=== PATIENT | female | born 1970 | race Caucasian/White ===

== ENCOUNTER 2024-12-15 08:29 | Emergency (ER) | payer OTHER, SELFPAY ==
[2024-12-15 08:32] VITALS: BP 163/108
--- NOTE | 2024-12-15 08:57 | ED.GENMED ---
History of Present Illness
General
Chief Complaint: Blood Pressure Problem
Source: patient
Time Seen by Provider: 12/15/24 08:47
History of Present Illness
History of Present Illness:
54-year-old female with past medical history of migraines presenting to the emergency department for evaluation of elevated blood pressure, patient notes that yesterday at preoperative testing prior to a bunionectomy procedure it was noted that
patient had elevated blood pressure, today went to the school nurse for blood pressure rechecked and it was significantly elevated at 208/108 and was recommended to come to the ER for further evaluation patient states that she is otherwise
asymptomatic, denying any headaches, visual disturbances, focal weakness or numbness, chest pain or shortness of breath, abdominal pain, nausea or vomiting. She notes that her blood pressure is usually well-controlled, has no history of similar.
Father had a history of hypertension but patient notes that he had a significant smoking history. Social history was otherwise noncontributory.
Past History
Past History
ED Past Medical History: Other (Migraines)
ED Past Surgical History: and Orthopedic
Social History
Tobacco: Non-smoker
Alcohol: None
Drug: None
Personal:
Living: with family
Employment: Employed
Review of Systems
Review of Systems
All Other Systems: ROS reviewed and negative except as documented in HPI and ROS
Phy Exam
Physical Exam
Physical Exam:
GENERAL: Alert , in no apparent distress
HEAD: Normocephalic atraumatic
EYE: conjunctiva clear
NECK: Supple
ENT: o/p clr, mmm.
CARDIAC: Regular rate and rhythm
LUNGS: Clear breath sounds bilaterally, no acute respiratory distress, no wheezes/rales/rhonchi
NEUROLOGICAL: Alert and oriented
SKIN: Warm and dry, skin intact.
MUSCULOSKELETAL: well perfused.
PSYCH: Normal and appropriate interaction.
Scores
Heart Failure Risk
Heart Failure Risk Score: Not Applicable
Heart Score for Chest Pain Patients
STEMI patient?: Not applicable
Withdrawal Assessment of Alcohol
Withdrawal Assessment Completed?: Not applicable
Course
Orders/Labs/Results
Orders:
Orders
12/15/24 08:57
Electrocardiogram (*1) Urgent
Reason for Study: Hypertension, Benign
EKG- Treatment ONCE
12/15/24 09:38
Complete Blood Count/With Diff Urgent
Comprehensive Metabolic Panel Urgent
Abnormal Lab Results
12/15/24
09:38
RBC 4.18 L 10^6/uL
(4.20-5.40)
Hct 35.8 L %
(37.0-47.0)
MPV 10.9 H fL
(7.4-10.4)
Monocytes % 9.9 H %
(1.7-9.3)
12/15/24 09:38
12/15/24 09:38
Vital Signs
Initial and Last Documented VS:
Initial Vital Signs
Temp Pulse Resp BP Pulse Ox
98.4 F 89 18 163/108 99
12/15/24 08:32 12/15/24 08:32 12/15/24 08:32 12/15/24 08:32 12/15/24 08:32
Last Documented Vital Signs
Temp Pulse Resp BP Pulse Ox
98.4 F 89 18 163/108 99
12/15/24 08:32 12/15/24 08:32 12/15/24 08:32 12/15/24 08:32 12/15/24 09:01
MDM/Problems Addressed
Differential Diagnosis Includes:
Hypertension
Hypertensive urgency/emergency
Kidney disease
No symptoms to suggest ACS
No symptoms to suggest CVA or acute neurologic event
MDM/Problems Addressed:
54-year-old female presenting to the ER for asymptomatic elevated blood pressure. She notes blood pressure was elevated at preoperative visit yesterday as well as at work today. Elevated on arrival here. At time of my exam I did recheck patient's
blood pressure which was 173/92. Will check labs and an EKG but given patient is otherwise asymptomatic I do anticipate her having close follow-up with her primary care provider for close monitoring of blood pressure and potentially initiation of
medication. We discussed dietary modification as well as exercise to help with this. Patient is agreeable with this plan. Disposition pending.
*Pulse Oximetry
SaO2: 99
Oxygen Mode of Delivery: Room air
Patient hypoxic: no
*EKG
Heart Rate: 69
Rate: normal
Rhythm: sinus
[place]: normal axis
Ischemia: no ischemia
*Nuclear Medicine Technologist Interpretation
Rate: normal
Heart Rate: 72
Rhythm: sinus
*Critical Care Note
Total Time (30-74mins, 75-104mins- exclusive of procedures): Not Applicable
Patient Management
Escalation/DeEscalation of care consider admission/obs:
Work up unremarkable. Patient remains without symptoms. Repeat BP 147/98. Will follow up with PCP. Aware of return precautions to the ER
ED Attending Note
-
Portions of this chart may have been created with voice recognition software.� Occasional wrong word or��sound alike� substitutions may have occurred due to the inherent limitations of voice recognition software.
Discharge Plan
Departure
Patient Disposition: Home (Routine Discharge)
Date of Disposition: 12/15/24
Time of Disposition: 10:23
Patient with high blood pressure during this ER visit?: Yes
Discharge Problem:
Elevated blood pressure reading
Instructions: High Blood Pressure (DC)
Referrals:
Loretta Hewitt DO [Family Provider]
Interventions
Interventions:
*Risk Screen - Suicide Last Done: 12/15/24 08:32
*General Assessment Last Done: 12/15/24 08:32
*Neglect/Abuse Screening Last Done: 12/15/24 08:32
*ED- Fall Risk Assessment Last Done: 12/15/24 10:29
*ED COVID-19 Vaccine History Last Done: 12/15/24 10:29
*Nursing Disposition Last Done: 12/15/24 10:29
ED- Cardiac Assessment Last Done: 12/15/24 09:50
ED- Neurological Assessment Last Done: 12/15/24 09:50
ED- Pulmonary Assessment Last Done: 12/15/24 09:50
Discharge Date and Time
Discharge Date/Time: 12/15/24 10:30
Print Language: BELARUSIAN
[2024-12-15 09:53] LABS: Hematocrit 35.8 % (37.0-47.0); Hemoglobin 12.0 g/dL (12.0-16.0); Mean Corp Hgb Conc. 33.5 g/dL (33.0-37.0); Mean Corpuscular Volume 85.6 fL (81.0-99.0); Nucleated Red Blood Cells % 0 %; Platelet Count 334 10^3/uL (130-400); Red Cell Dist. Width 12.5 % (11.5-14.5)
[2024-12-15 10:13] LABS: ALT (SGPT) 21 U/L (0-35); AST (SGOT) 28 U/L (14-36); Albumin 4.7 g/dl (3.5-5.0); Alkaline Phosphatase 83 U/L (38-126); Blood Urea Nitrogen 11 mg/dl (7-17); Calcium 10.1 mg/dl (8.4-10.2); Carbon Dioxide 28 mmol/L (22-30); Chloride 103 mmol/L (98-107); Glucose 95 mg/dl (70-99); Potassium 3.7 mmol/L (3.5-5.1); Sodium 138 mmol/L (135-145); Total Protein 7.5 g/dl (6.3-8.2); eGFR > 60.00
== END 2024-12-15 10:30 | disposition home or self-care (01) ==
LOC: EMR 08:29
PROVIDERS: Physician Assistant Medical; EMERGENCY PHYSICIAN Emergency Medicine; FAMILY PHYSICIAN Family Medicine
DX: I10 Essential (primary) hypertension (principal); Z82.49 Family history of ischemic heart disease and other diseases of the circulatory system; Z98.891 History of uterine scar from previous surgery
CPT/HCPCS: 99283; 80053; 85025; 93005